=== PATIENT | male | born 2000 | race Caucasian/White ===

== ENCOUNTER → 2024-04-27 | Outpatient (CLI) | payer BC ==
[2024-04-27 19:28] LABS: Basophils # (A) 0.06 X 10*3/uL (0.00-0.10); Basophils % (A) 1.2 %; Eosinophils % (A) 1.9 %; HCT 48.7 % (39.6-50.0); HGB 16.2 g/dL (13.0-17.0); Lymphocytes # (A) 1.57 X 10*3/uL (0.90-5.00); Lymphocytes % (A) 30.6 %; MCH 28.9 pg (27.0-32.0); MCHC 33.3 g/dL (32.0-37.0); Mean Platelet Volume 11.2 FL (9.5-12.2); Monocytes # (A) 0.53 X 10*3/uL (0.20-1.00); Monocytes % (A) 10.3 %; NRBC Per 100 WBC 0 X 10*3/uL (0.00-0.01); Neutrophils # (A) 2.86 X 10*3/uL (1.80-7.70); Neutrophils % (A) 55.8 %; Platelet Count 275 X 10*3/uL (140-440); RDW 12.2 % (11.5-14.5); WBC 5.13 X 10*3/uL (4.50-10.00)
[2024-04-27 19:53] LABS: ALT 18 U/L (10-49); AST 21 U/L (14-35); Albumin/Globulin Ratio 2.17 Ratio (1.60-3.17); Alkaline Phosphatase 57 U/L (41-126); BUN/Creat Ratio 16.25 Ratio (12.00-20.00); Calcium 9.6 mg/dL (8.7-10.3); Carbon Dioxide 25.1 mmol/L (21.6-31.8); Chloride 103 mmol/L (96-109); Chol/HDL Ratio 3.33 Ratio; Globulin 2.3 g/dL (1.6-3.3); Glucose 90 mg/dL (70-110); LDL Cholesterol,Calculated 118.5 mg/dL (0.0-131.0); Potassium 4.7 mmol/L (3.5-5.5); Sodium 142 mmol/L (135-145); Total Bilirubin 0.7 mg/dL (0.3-1.2); Total Protein 7.3 g/dL (6.2-8.2); VLDL Calculation 9.52 mg/dL (5.00-40.00)
--- NOTE | 2024-04-27 20:34 | XR ---
EXAMINATION TYPE: XR chest 2V DATE OF EXAM: 04/27/2024 1:31 PM COMPARISON: None CLINICAL INDICATION: Male, 24 years old with history of R07.89 Chest pain, , TECHNIQUE: frontal and lateral views FINDINGS: The cardiomediastinal silhouette, aorta, and pulmonary vasculature are within normal limits. Lungs an d pleural spaces are clear. IMPRESSION: No acute cardiopulmonary process. [facility], , 04/27/2024 8:32 PM
--- NOTE | 2024-04-27 20:34 | XR ---
EXAMINATION TYPE: XR shoulder limited bilateral DATE OF EXAM: 04/27/2024 COMPARISON: NONE CLINICAL INDICATION: Male, 24 years old with history of M25.512 Pain bilat shoulders; TECHNIQUE: AP view each side FINDINGS: AC joints appear symmetric. Subacromial space is preserved on both sides. No chronic or bur abbey calcifications. Small delineation to the greater tuberosities. No tendinous or bursal calcificati ons. No acute fracture, subluxation, or dislocation is seen. IMPRESSION: Single AP view of each shoulder shows no discrete radiographic abnormality. [facility], Workstation: [email or web address], 04/27/2024 8:32 PM
== END | disposition home or self-care (01) ==
LOC: LABWHC1 12:21
PROVIDERS: ATTEND Internal Medicine
DX: Z00.00 Encounter for general adult medical examination without abnormal findings (principal); M25.511 Pain in right shoulder; M25.512 Pain in left shoulder; R07.89 Other chest pain; R53.82 Chronic fatigue, unspecified
CPT/HCPCS: 36415; 71046; 80053; 80061; 84443; 85025